=== PATIENT | male | born 1965 | race Caucasian/White ===

== ENCOUNTER → 2016-12-30 | Outpatient (CLI) | payer BC ==
[~2016-12-30] MED LIST: BLOOD PRESSURE; DIABETA5 MG PO; LISINOPRIL5 MG PO; METFORMIN1000 MG PO; SIMVASTATIN10 MG PO; SIMVISTATIN
[2016-12-30 17:51] LABS: HEMATOCRIT 44.9 % (42.0-52.0); HEMOGLOBIN 15.1 g/dl (14.0-18.0); MEAN CELL VOLUME 88.9 fl (80.0-94.0); MEAN CORPUSCULAR HGB 29.9 pg (27.0-31.0); MEAN CORPUSCULAR HGB CONC 33.6 g/dl (33.0-37.0); MEAN PLATELET VOLUME 10.8 fl (9.6-12.3); RED BLOOD COUNT 5.05 10*6/uL (4.50-5.90); RED CELL DISTRI WIDTH 13.3 % (0-14.5); WHITE BLOOD COUNT 11.9 10*3/uL (4.8-10.8)
[2016-12-30 18:19] LABS: ALKALINE PHOSPHATASE 59 U/L (45-117); BUN 11 mg/dl (7-24); CHLORIDE 109 mmol/L (98-107); CREATININE 0.75 mg/dL (0.70-1.30); POTASSIUM 3.9 mmol/L (3.5-5.1); SGOT/AST 17 IU/L (3-35); SGPT/ALT 26 U/L (12-78); SODIUM 142 mmol/L (136-145)
== END | disposition home or self-care (01) ==
LOC: LAB 17:38
PROVIDERS: Internal Medicine
DX: E13.9 Other specified diabetes mellitus without complications (principal)

== ENCOUNTER 2017-05-14 13:05 | Inpatient (IN) | payer BC ==
[2017-05-14] VITALS (7 sets, daily range): BP systolic 112–140; BP diastolic 73–88
[~2017-05-14] VITALS: Ht 177.8 cm; Wt 88.9 kg
[~2017-05-14 13:05] MED LIST changes: -DIABETA5 MG PO; +Diabeta,Micron2.5 MG PO
[2017-05-14 13:39] LABS: BASO # 0.1 10*3/uL (0.0-0.1); EOS # 0.2 10*3/uL (0.0-0.4); EOS % 1.7 % (1.0-4.0); HEMATOCRIT 49.3 % (42.0-52.0); HEMOGLOBIN 17.2 g/dl (14.0-18.0); LYMPH # 2.2 10*3/uL (1.3-4.4); MEAN CELL VOLUME 86.5 fl (80.0-94.0); MEAN CORPUSCULAR HGB 30.2 pg (27.0-31.0); MEAN CORPUSCULAR HGB CONC 34.9 g/dl (33.0-37.0); MEAN PLATELET VOLUME 11.4 fl (9.6-12.3); MONO # 1.3 10*3/uL (0.1-1.0); MONO % 10.7 % (3.0-9.0); NEUT # 8.3 10*3/uL (2.3-7.9); NEUT % 67.8 % (47.0-73.0); PLATELET COUNT AUTOMATED 216 10*3/uL (130-400); RED CELL DISTRI WIDTH 11.9 % (0-14.5); WHITE BLOOD COUNT 12.3 10*3/uL (4.8-10.8)
[2017-05-14 13:46] LABS: INTERNATIONAL NORM RATIO 1.1 (2.0-3.5)
[2017-05-14 13:58] LABS: ALBUMIN 3.7 gm/dl (3.1-4.5); ALKALINE PHOSPHATASE 70 U/L (45-117); BUN 14 mg/dl (7-24); CHLORIDE 96 mmol/L (98-107); CREATININE 1.03 mg/dL (0.70-1.30); POTASSIUM 4.3 mmol/L (3.5-5.1); SGOT/AST 21 IU/L (3-35); SGPT/ALT 58 U/L (12-78); SODIUM 134 mmol/L (136-145); TOTAL PROTEIN 8.1 gm/dL (6.4-8.2)
[2017-05-14 14:03] LABS: TROPONIN I < 0.015 ng/ml (<0.045)
[2017-05-14] MEDS ORDERED: LISINOPRIL2.5 MG PO (17:06)
[2017-05-15] VITALS: BP 122/77
[2017-05-15 06:08] LABS: BASO # 0.1 10*3/uL (0.0-0.1); BASO % 0.9 % (0.0-1.0); EOS # 0.3 10*3/uL (0.0-0.4); EOS % 3.1 % (1.0-4.0); HEMATOCRIT 48.2 % (42.0-52.0); HEMOGLOBIN 16.7 g/dl (14.0-18.0); LYMPH % 19.4 % (27.0-41.0); MEAN CELL VOLUME 88.1 fl (80.0-94.0); MEAN CORPUSCULAR HGB 30.5 pg (27.0-31.0); MEAN CORPUSCULAR HGB CONC 34.6 g/dl (33.0-37.0); MEAN PLATELET VOLUME 11.4 fl (9.6-12.3); MONO # 1.3 10*3/uL (0.1-1.0); MONO % 12.9 % (3.0-9.0); NEUT # 6.4 10*3/uL (2.3-7.9); NEUT % 62.9 % (47.0-73.0); PLATELET COUNT AUTOMATED 189 10*3/uL (130-400); RED BLOOD COUNT 5.47 10*6/uL (4.50-5.90); RED CELL DISTRI WIDTH 11.9 % (0-14.5); WHITE BLOOD COUNT 10.2 10*3/uL (4.8-10.8)
[2017-05-15 06:22] LABS: ALBUMIN 3.3 gm/dl (3.1-4.5); BUN 14 mg/dl (7-24); CHLORIDE 99 mmol/L (98-107); CHOLESTEROL 155 mg/dL (<200); CREATININE 0.89 mg/dL (0.70-1.30); PHOSPHOROUS 3.5 mg/dL (2.5-4.9); POTASSIUM 3.9 mmol/L (3.5-5.1); SGOT/AST 15 IU/L (3-35); SGPT/ALT 45 U/L (12-78); SODIUM 138 mmol/L (136-145); TRIGLYCERIDES 167 mg/dl (<150); VLDL CHOLESTEROL 33 mg/dL (6-40)
[2017-05-15 06:30] LABS: ALKALINE PHOSPHATASE 57 U/L (45-117); HDL CHOLESTEROL 37 mg/dl (40-60); LDL CHOLESTEROL 85 mg/dL (9-159); TOTAL PROTEIN 7.7 gm/dL (6.4-8.2)
[2017-05-15 07:21] LABS: VITAMIN D, 25-HYDROXY 17.9 ng/mL (30-100)
[2017-05-15 08:00] VITALS: BP 116/72
[2017-05-15 12:00] VITALS: BP 114/67
[2017-05-15] MEDS ORDERED: ASPIRIN CHEWABL81 M1 PO (12:49)
[2017-05-15] MEDS ORDERED: SIMVASTATIN40 MG PO (12:49)
[2017-05-15] MEDS ORDERED: CYCLOBENZAPRINE10 MG PO (12:49)
[2017-05-15] MEDS ORDERED: VITAMIN D5000 UNI1 PO (12:49)
== END 2017-05-15 13:35 | disposition home or self-care (01) | DRG 554 ==
LOC: ED 13:05 → EDHOLD 15:15 → 4E 15:15
PROVIDERS: Internal Medicine Hospice and Palliative Medicine; Physician Assistant
DX: M19.012 Primary osteoarthritis, left shoulder (principal); E87.8 Other disorders of electrolyte and fluid balance, not elsewhere classified; R65.10 Systemic inflammatory response syndrome (SIRS) of non-infectious origin without acute organ dysfunction; E11.65 Type 2 diabetes mellitus with hyperglycemia; M54.2 Cervicalgia; E87.6 Hypokalemia; I10 Essential (primary) hypertension; R07.89 Other chest pain; F41.9 Anxiety disorder, unspecified; E78.5 Hyperlipidemia, unspecified; F17.200 Nicotine dependence, unspecified, uncomplicated; Z71.6 Tobacco abuse counseling; Z80.0 Family history of malignant neoplasm of digestive organs; Z79.899 Other long term (current) drug therapy; Z79.84 Long term (current) use of oral hypoglycemic drugs

== ENCOUNTER → 2020-02-20 | Outpatient (CLI) | payer BC ==
[~2020-02-20] MED LIST changes: +ASPIRIN CHEWABL81 M1 PO; +CYCLOBENZAPRINE10 MG PO; +LISINOPRIL2.5 MG PO; +SIMVASTATIN40 MG PO; +VITAMIN D5000 UNI1 PO
[2020-02-20 11:24] LABS: HEMATOCRIT 53.2 % (42.0-52.0); MEAN CELL VOLUME 88.5 fl (80.0-94.0); MEAN CORPUSCULAR HGB CONC 32.7 g/dl (33.0-37.0); RED BLOOD COUNT 6.01 10*6/uL (4.50-5.90); RED CELL DISTRI WIDTH 12.4 % (0-14.5); WHITE BLOOD COUNT 8.2 10*3/uL (4.8-10.8)
[2020-02-20 11:52] LABS: ALBUMIN 3.6 gm/dl (3.1-4.5); ALKALINE PHOSPHATASE 68 U/L (45-117); BUN 12 mg/dl (7-24); CHLORIDE 105 mmol/L (98-107); CHOLESTEROL 174 mg/dL (<200); CREATININE 0.82 mg/dL (0.70-1.30); HDL CHOLESTEROL 32 mg/dl (40-60); LDL CHOLESTEROL 110 mg/dL (9-159); POTASSIUM 3.8 mmol/L (3.5-5.1); SGOT/AST 21 IU/L (3-35); SGPT/ALT 31 U/L (12-78); SODIUM 139 mmol/L (136-145); TOTAL PROTEIN 7.6 gm/dL (6.4-8.2); TRIGLYCERIDES 158 mg/dl (<150); VLDL CHOLESTEROL 32 mg/dL (6-40)
== END | disposition home or self-care (01) ==
LOC: LAB 10:24
PROVIDERS: ATTEND Physician Assistant
DX: Z12.5 Encounter for screening for malignant neoplasm of prostate (principal); E13.9 Other specified diabetes mellitus without complications

== ENCOUNTER → 2021-02-17 | Outpatient (CLI) | payer BC ==
[2021-02-17 10:16] LABS: BASO # 0.1 10*3/uL (0.0-0.1); BASO % 0.7 % (0.0-1.0); EOS # 0.3 10*3/uL (0.0-0.4); EOS % 3.1 % (1.0-4.0); HEMATOCRIT 48.8 % (42.0-52.0); MEAN CELL VOLUME 90.2 fl (80.0-94.0); MEAN CORPUSCULAR HGB 29.9 pg (27.0-31.0); MEAN CORPUSCULAR HGB CONC 33.2 g/dl (33.0-37.0); MONO # 0.8 10*3/uL (0.1-1.0); MONO % 9.1 % (3.0-9.0); NEUT # 5.2 10*3/uL (2.3-7.9); NEUT % 62.7 % (47.0-73.0); PLATELET COUNT AUTOMATED 207 10*3/uL (130-400); RED BLOOD COUNT 5.41 10*6/uL (4.50-5.90); RED CELL DISTRI WIDTH 12.9 % (0-14.5); WHITE BLOOD COUNT 8.3 10*3/uL (4.8-10.8)
[2021-02-17 12:08] LABS: ALBUMIN 3.2 gm/dl (3.1-4.5); ALKALINE PHOSPHATASE 79 U/L (45-117); BUN 11 mg/dl (7-24); CHLORIDE 92 mmol/L (98-107); CHOLESTEROL 120 mg/dL (<200); CREATININE 0.81 mg/dL (0.70-1.30); LDL CHOLESTEROL 70 mg/dL (9-159); POTASSIUM 3.7 mmol/L (3.5-5.1); SGOT/AST 16 IU/L (3-35); SGPT/ALT 28 U/L (12-78); SODIUM 125 mmol/L (136-145); TOTAL PROTEIN 7.4 gm/dL (6.4-8.2); TRIGLYCERIDES 104 mg/dl (<150)
== END | disposition home or self-care (01) ==
LOC: LAB 09:46
PROVIDERS: ATTEND Nurse Practitioner Primary Care
DX: Z12.5 Encounter for screening for malignant neoplasm of prostate (principal); E11.65 Type 2 diabetes mellitus with hyperglycemia

== ENCOUNTER → 2021-10-17 | Outpatient (CLI) | payer BC | END | disposition home or self-care (01) | LOC: LAB 18:45 | PROVIDERS: ATTEND Urology | DX: N40.1 Benign prostatic hyperplasia with lower urinary tract symptoms (principal) ==

== ENCOUNTER → 2021-11-28 | Outpatient (CLI) | payer BC ==
[2021-11-28 09:19] LABS: MEAN CELL VOLUME 88.4 fl (80.0-94.0); MEAN CORPUSCULAR HGB 29.9 pg (27.0-31.0); MEAN CORPUSCULAR HGB CONC 33.8 g/dl (33.0-37.0); MEAN PLATELET VOLUME 10.6 fl (9.6-12.3); RED BLOOD COUNT 5.88 10*6/uL (4.50-5.90); RED CELL DISTRI WIDTH 12.5 % (0-14.5); WHITE BLOOD COUNT 9.3 10*3/uL (4.8-10.8)
[2021-11-28 09:39] LABS: BUN 13 mg/dl (7-24); CHLORIDE 106 mmol/L (98-107); CHOLESTEROL 107 mg/dL (<200); CREATININE 0.85 mg/dL (0.70-1.30); POTASSIUM 4.1 mmol/L (3.5-5.1); SGOT/AST 16 IU/L (3-35); SGPT/ALT 22 U/L (12-78); SODIUM 136 mmol/L (136-145); TRIGLYCERIDES 71 mg/dl (<150)
[2021-11-28 09:40] LABS: ALKALINE PHOSPHATASE 59 U/L (45-117); LDL CHOLESTEROL 57 mg/dL (9-159); TOTAL PROTEIN 7.9 gm/dL (6.4-8.2)
== END | disposition home or self-care (01) ==
LOC: LAB 09:06
PROVIDERS: ATTEND Physician Assistant
DX: E11.65 Type 2 diabetes mellitus with hyperglycemia (principal); E13.9 Other specified diabetes mellitus without complications

== ENCOUNTER → 2022-01-03 | Day surgery (SDC) | payer BC ==
[~2022-01-03] VITALS: Ht 177.8 cm; Wt 81.6 kg
[~2022-01-03] MED LIST changes: +FARXIGA5 M1 PO; +NEXIUM20 M1 PO
[2022-01-03 08:56] VITALS: BP 110/71
[2022-01-03 09:47] VITALS: BP 89/58
[2022-01-03 10:00] VITALS: BP 104/74
[2022-01-03 10:17] VITALS: BP 107/70
== END | disposition home or self-care (01) ==
LOC: SDC 12-31 11:00
PROVIDERS: ATTEND Surgery
DX: Z12.11 Encounter for screening for malignant neoplasm of colon (principal); K63.5 Polyp of colon; I10 Essential (primary) hypertension; E11.9 Type 2 diabetes mellitus without complications; E78.00 Pure hypercholesterolemia, unspecified; F17.210 Nicotine dependence, cigarettes, uncomplicated; Z79.899 Other long term (current) drug therapy

== ENCOUNTER → 2022-04-30 | Outpatient (CLI) | payer BC ==
[~2022-04-30] MED LIST changes: +ASPIRIN CHEWABL81 MG PO; +BRILINTA90 M1 PO; +GLYBURIDE5 MG PO; +METFORMIN HYD1000 MG PO; +PRAVASTATIN SOD80 MG PO; +TOPROL XL50 M1 PO; +TRULICITY1.5 MG/0.5 SC; +WELLBUTRIN SR150 MG PO
== END | disposition home or self-care (01) ==
LOC: CARD 04:04
PROVIDERS: ATTEND Internal Medicine Cardiovascular Disease
DX: I25.10 Atherosclerotic heart disease of native coronary artery without angina pectoris (principal); I51.9 Heart disease, unspecified; I21.02 ST elevation (STEMI) myocardial infarction involving left anterior descending coronary artery